=== PATIENT | female | born 1995 | race Caucasian/White ===

== ENCOUNTER 2019-08-01 14:30 | Emergency (ER) | payer OTHER ==
[~2019-08-01] VITALS: Ht 158.8 cm; Wt 59.0 kg
[2019-08-01 15:28] VITALS: BP 119/78
[2019-08-01] MEDS ORDERED: PENI500T2 PO (16:43)
[2019-08-01 16:58] LABS: CLARITY,URINE SLIGHTLY CLOUDY (Clear); COLOR,URINE YELLOW (Yellow); GLUCOSE, URINE NEGATIVE (Neg); KETONES,URINE NEGATIVE (Neg); LEUKOCYTE ESTERASE ,URINE TRACE (Neg); NITRITES, URINE NEGATIVE (Neg); OCCULT BLOOD,URINE NEGATIVE (Neg); PH,URINE 6.5 (4.8-8.0); PROTEIN,URINE NEGATIVE (Neg); UROBILINOGEN,URINE 0.2 E.U/dL (0.2-1.0)
[2019-08-01 17:02] LABS: UA COLLECTION TYPE CLN CATCH MIDSTREAM
[2019-08-01 17:07] LABS: TRICHOMONAS,URINE MOD /HPF (NEGATIVE); WBC,URINE 0-4 /HPF (0-4)
[2019-08-01 17:08] LABS: BACTERIA,URINE FEW /HPF (Neg); RBC,URINE 0-2 /HPF (0-2); SQUAMOUS EPITHELIAL CELL,UR FEW /LPF (FEW)
== END 2019-08-01 17:14 | disposition home or self-care (01) ==
LOC: ER 14:31
DX: K08.89 Other specified disorders of teeth and supporting structures (principal); M79.10 Myalgia, unspecified site; F15.90 Other stimulant use, unspecified, uncomplicated; F11.90 Opioid use, unspecified, uncomplicated; F17.200 Nicotine dependence, unspecified, uncomplicated; Z79.2 Long term (current) use of antibiotics
CPT/HCPCS: 81001; 87088; 99283